=== PATIENT | female | born 1955 | race Two or more races ===

== ENCOUNTER → 2017-06-21 | Outpatient (CLI) | payer MEDICARE ==
[~2017-06-21] MED LIST: REGADENOSON 0.4 MG/5 ML SYRINGE ONE
== END | disposition home or self-care (01) ==
LOC: CFH 07:23
PROVIDERS: ATTEND Internal Medicine Cardiovascular Disease
DX: I25.89 Other forms of chronic ischemic heart disease (principal); I70.213 Atherosclerosis of native arteries of extremities with intermittent claudication, bilateral legs; I10 Essential (primary) hypertension; E11.9 Type 2 diabetes mellitus without complications
CPT/HCPCS: 78452; 93017; A9502; J2785

== ENCOUNTER 2017-07-16 10:28 | Day surgery (SDC) | payer MEDICARE ==
[2017-07-15 11:30] VITALS: BP 185/66
[2017-07-15 11:31] LABS: BASOPHILS # (AUTO) 0.02 x10^3/uL (0-0.1); BASOPHILS % (AUTO) 0 % (0-1); EOSINOPHILS # (AUTO) 0.03 x10^3/uL (0-0.4); EOSINOPHILS % (AUTO) 0 % (1-7); LYMPHOCYTES % (AUTO) 33 % (22-44); MD NO; MEAN CORPUSCULAR HEMOGLOBIN 29.5 pg (27.0-34.8); MEAN CORPUSCULAR VOLUME 86.9 fL (80-100); MEAN PLATELET VOLUME 8.8 fL (7.4-10.4); MONOCYTES # (AUTO) 0.44 x10^3/uL (0.2-0.8); MONOCYTES % (AUTO) 6 % (2-9); NEUTROPHILS # (AUTO) 4.38 x10^3/uL (1.8-6.8); NEUTROPHILS % (AUTO) 60 % (42-75); PLATELET COUNT 293 x10^3/uL (130-400); RED BLOOD COUNT 4.75 x10^6/uL (3.82-5.3); RED CELL DISTRIBUTION WIDTH 13.4 % (9.6-15.2)
[2017-07-15 11:39] LABS: INTERNATIONAL NORMALIZED RATIO 0.96 (0.93-1.1)
[~2017-07-16] VITALS: Ht 162.6 cm; Wt 84.1 kg
[~2017-07-16 10:28] MED LIST changes: +CHOL500050 PO; +GLYB5TAB3 PO; +INSU100I13 SQ; +NEBI10TA3 PO; +NPH,100I4 SQ; -REGADENOSON 0.4 MG/5 ML SYRINGE ONE; +ROSU20TA PO; +VALS1TAB19 PO; +ZOST1940 SQ
[2017-07-16] MEDS ORDERED: SODIUM CHLORIDE 0.9% 1,000 ML IV ONE (12:16)
[2017-07-16] MEDS ORDERED: DIPHENHYDRAMINE 50 MG/ML, 1ML IVPush ONE (12:30)
[2017-07-16] MEDS ORDERED: DIPHENHYDRAMINE 50 MG/ML, 1ML ONE (13:14)
[2017-07-16] MEDS ORDERED: MIDAZOLAM 1 MG/ML, 5ML ONE (14:48)
[2017-07-16] MEDS ORDERED: FENTANYL PF 100 MCG/2ML ONE (14:48)
[2017-07-16] MEDS ORDERED: TICAGRELOR 90 MG TABLET ONE (14:49)
[2017-07-16] MEDS ORDERED: HEPARIN 1,000 UNITS/ML, 10ML ONE (14:49)
[2017-07-16] MEDS ORDERED: VERAPAMIL 2.5 MG/ML, 2ML ONE (14:49)
[2017-07-16] MEDS ORDERED: LIDOCAINE 2%, 20ML ONE (14:49)
[2017-07-16] MEDS ORDERED: BIVALIRUDIN 250 MG ONE (14:49)
[2017-07-16] MEDS ORDERED: SODIUM CHLORIDE 0.9% 1,000 ML IV SCH (15:45)
[2017-07-16] MEDS ORDERED: INSULIN REGULAR 100 UNITS/ML, 3ML VIAL SQ-INSULIN ONE (16:00)
[2017-07-16 16:31] VITALS: BP 179/76
== END 2017-07-16 19:05 | disposition home or self-care (01) ==
LOC: CACL 10:28 → 5SO 16:24 → CACL 19:05
PROVIDERS: ATTEND Internal Medicine Cardiovascular Disease
DX: I25.10 Atherosclerotic heart disease of native coronary artery without angina pectoris (principal); I10 Essential (primary) hypertension; E78.5 Hyperlipidemia, unspecified; E11.9 Type 2 diabetes mellitus without complications
CPT/HCPCS: 36415; 82962; 85025; 85610; 93458; 99156; C1894; J1200; J1644; J1815; J2250; J3010; J3490; J7030; Q9967; J0583

== ENCOUNTER 2019-04-13 14:06 | Emergency (ER) | payer MEDICARE ==
[~2019-04-13] VITALS: Ht 160 cm; Wt 103.0 kg
[~2019-04-13 14:06] MED LIST changes: -ROSU20TA PO; +ROSU20TA2 PO
--- NOTE | 2019-04-13 14:57 | NUR ---
PT HERE WITH C/O CHEST PRESSURE, INTERMITTENT SINCE YESTERDAY BUT WORSE THIS MORNING. PER PT, ASSOCIATED NAUSEA, CHEST PRESSURE STERNAL IN LOCATION AND RADIATES ACROSS BACK. PT ALSO C/O R AND L UPPER QUADRANT ABDOMINAL PAIN. PT AAO X 4, NAD, ROOM AIR. DJIBOUTIAN SPEAKING ONLY BUT PT AND DAUGHTER OK FOR TRANSLATION. PT DRESSED IN GOWN AND ATTACHED TO MONITOR. MD AT BEDSIDE FOR EXAM. XRAY COMPLETED. PIV ESTABLISHED BY THIS RN AND LABS DRAWN.
[2019-04-13] MEDS ORDERED: SODIUM CHLORIDE FLUSH 10ML SYR IVF ONE (15:00)
[2019-04-13] MEDS ORDERED: SODIUM CHLORIDE 0.9% 1,000ML IVBOLUS ONE (15:00)
[2019-04-13 15:02] LABS: BASOPHILS # (AUTO) 0.11 x10^3/uL (0-0.1); BASOPHILS % (AUTO) 1 % (0-1); EOSINOPHILS # (AUTO) 0.04 x10^3/uL (0-0.4); EOSINOPHILS % (AUTO) 0 % (1-7); LYMPHOCYTES # (AUTO) 2.68 x10^3/uL (1-3.4); LYMPHOCYTES % (AUTO) 22 % (22-44); MD NO; MEAN CORPUSCULAR HEMOGLOBIN 28.2 pg (27.0-34.8); MEAN CORPUSCULAR HGB CONC 32.4 g/dL (32.4-35.8); MEAN CORPUSCULAR VOLUME 87.1 fL (80-100); MEAN PLATELET VOLUME 8.7 fL (7.4-10.4); MONOCYTES # (AUTO) 0.42 x10^3/uL (0.2-0.8); MONOCYTES % (AUTO) 4 % (2-9); NEUTROPHILS # (AUTO) 8.71 x10^3/uL (1.8-6.8); NEUTROPHILS % (AUTO) 73 % (42-75); PLATELET COUNT 358 x10^3/uL (130-400); RED BLOOD COUNT 4.43 x10^6/uL (3.82-5.3); RED CELL DISTRIBUTION WIDTH 14.2 % (9.6-15.2)
--- NOTE | 2019-04-13 15:06 | NUR ---
PT AMBULATORY TO RESTROOM FOR UA. PT MEDICATED PER ORDERS.
[2019-04-13 15:13] LABS: ALANINE AMINOTRANSFERASE 26 U/L (12-78); ALBUMIN 3.1 g/dL (3.4-5.0); ANION GAP 8 mmol/L (5-15); CHLORIDE 104 mmol/L (98-107); CREATININE 1.22 mg/dL (0.55-1.02)
--- NOTE | 2019-04-13 15:17 | NUR ---
PT UNABLE TO PROVIDE UA. US AT BEDSIDE.
[2019-04-13 15:18] LABS: ALKALINE PHOSPHATASE 137 U/L (45-117); BILIRUBIN,TOTAL 0.2 mg/dL (0.2-1.0); TOTAL PROTEIN 7.7 g/dL (6.4-8.2); TROPONIN I < 0.015 ng/mL (0.000-0.045)
--- NOTE | 2019-04-13 16:05 | NUR ---
Break RN note: Pt extremely agitated, screaming unknown language. Pt kept safe, Dr. You at bedside.
[2019-04-13] MEDS ORDERED: LORazepam 2 MG/ML, 1ML ONE (16:09)
--- NOTE | 2019-04-13 16:16 | NUR ---
Break RN note: Pt more calm after medications. This RN to accompany pt to CT
[2019-04-13] MEDS ORDERED: LORazepam 2 MG/ML, 1ML IVPush ONE (16:30)
--- NOTE | 2019-04-13 16:34 | NUR ---
REPORT RECEIVED FROM CHRIS QUINTANILLA. PT CALMLY RESTING ON HE[place], AT BEDSIDE.
[2019-04-13 16:35] VITALS: BP 143/59
[2019-04-13 17:05] LABS: ACETONE, SERUM Small (20mg/dL) mg/dL (Negative)
--- NOTE | 2019-04-13 17:22 | NUR ---
PT AMBULATORY WITH STAFF ASSISTANCE TO RESTROOM FOR UA.
[2019-04-13 17:26] LABS: HEMOGLOBIN A1C 10.2 % (4.2-6.3)
[2019-04-13 18:03] LABS: MICROSCOPIC AUTO
[2019-04-13 18:12] LABS: CULTURE INDICATED? YES
--- NOTE | 2019-04-13 18:29 | NUR ---
AT BEDSIDE, PLAN FOR D/C. PIV REMOVED WITH TIP INTACT.
--- NOTE | 2019-04-13 18:54 | NUR ---
Patient/Caregiver given discharge instructions and they have confirmed that they understand the instructions. Patient ambulatory with steady gait.
== END 2019-04-13 19:15 | disposition home or self-care (01) ==
LOC: ED 18:10
DX: N30.00 Acute cystitis without hematuria (principal); E11.65 Type 2 diabetes mellitus with hyperglycemia; I10 Essential (primary) hypertension; R07.89 Other chest pain
CPT/HCPCS: 36415; 70450; 71045; 76700; 80053; 81001; 82010; 82800; 82962; 83036; 83690; 83735; 84100; 84484; 85025; 87086; 93005; 96360; 99284; J7030

== ENCOUNTER 2019-11-15 13:31 | Emergency (ER) | payer MEDICARE ==
[~2019-11-15] VITALS: Ht 162.6 cm; Wt 88.4 kg
[2019-11-15] MEDS ORDERED: FLUORESCEIN OPHTHALMIC 1 MG STRIP ONE (14:18)
[2019-11-15] MEDS ORDERED: PROPARACAINE OPHTH 0.5%, 15ML ONE (14:18)
[2019-11-15 14:23] VITALS: BP 176/76
--- NOTE | 2019-11-15 14:34 | NUR ---
AWARE OF PT BP. REPORTS OK TO DC.
== END 2019-11-15 14:47 | disposition home or self-care (01) ==
LOC: ED 14:40
DX: B02.9 Zoster without complications (principal); I10 Essential (primary) hypertension; E11.65 Type 2 diabetes mellitus with hyperglycemia
CPT/HCPCS: 99283

== ENCOUNTER → 2020-02-29 | Outpatient (CLI) | payer MEDICARE | END | disposition home or self-care (01) | LOC: CFH 11:18 | PROVIDERS: ATTEND Family Medicine | DX: N60.01 Solitary cyst of right breast (principal); R92.2 Inconclusive mammogram | CPT/HCPCS: 76642; 77065 ==

== ENCOUNTER → 2020-10-11 | Outpatient (CLI) | payer MEDICARE ==
[~2020-10-11] MED LIST changes: -VALS1TAB19 PO; +VALS1TAB20 PO
== END | disposition home or self-care (01) ==
LOC: CFH 14:16
PROVIDERS: ATTEND Family Medicine
DX: N60.01 Solitary cyst of right breast (principal); R92.8 Other abnormal and inconclusive findings on diagnostic imaging of breast
CPT/HCPCS: 76642